=== PATIENT | female | born 1960 | race Caucasian/White ===

== ENCOUNTER 2016-10-09 16:07 | Emergency (ER) | payer OTHER ==
[2016-10-09 16:19] VITALS: BP 135/84; PULSE 89; TEMP 97.9; BMI 32.1
[2016-10-09] MEDS ORDERED: traMADol HCL 50 MG TABLET ONE (17:15)
[2016-10-09] MEDS ORDERED: traMADol HCL 50 MG TABLET PO ONE (17:29)
--- NOTE | 2016-10-09 17:38 | PDOC ---
History of Present Illness - General Chief Complaint: Pain Stated Complaint: NECK PAIN/RT SHOULDER PAIN Time Seen by Provider: 10/09/16 16:46 History Source: Patient - History of Present Illness Timing/Duration: other Associated Symptoms: denies: fever/chills, malaise, weakness Past History - Past Medical History Allergies/Adverse Reactions: Allergies Allergy/AdvReac Type Severity Reaction Status Date / Time No Known Drug Allergies Allergy Verified 10/09/16 16:16 Home Medications: Ambulatory Orders Tramadol HCl 50 mg PO Q6H #30 tablet MDD 200mg 10/09/16 Anemia: No Asthma: No Cancer: Yes (BREAST/HAD LUMPECTOMY) Cardiac Disorders: No CVA: No COPD: No CHF: No Dementia: No Diabetes: No GI Disorders: No Disorders: No HTN: No Hypercholesterolemia: No Liver Disease: No Psychiatric Problems: Yes (depression) Seizures: No Thyroid Disease: No - Surgical History Abdominal Surgery: No Appendectomy: No Cardiac Surgery: No Cholecystectomy: No Lung Surgery: No Neurologic Surgery: No Orthopedic Surgery: No - Psycho/Social/Smoking Cessation Hx Anxiety: No Suicidal Ideation: No Smoking History: Never smoked Have you smoked in the past 12 months: No Information on smoking cessation initiated: No Hx Alcohol Use: No Drug/Substance Use Hx: No Substance Use Type: None Hx Substance Use Treatment: No Review of Systems - Review of Systems Constitutional: No: Chills, Fever Respiratory: No: Shortness of Breath Cardiac (ROS): No: Chest Pain, Palpitations Neurological: No: Numbness, Tingling, Weakness *Physical Exam - Vital Signs Last Vital Signs Temp Pulse Resp BP Pulse Ox 97.9 F 89 18 135/84 100 10/09/16 16:16 10/09/16 16:16 10/09/16 16:16 10/09/16 16:16 10/09/16 16:16 - Physical Exam General Appearance: Yes: Appropriately Dressed. No: Apparent Distress HEENT: positive: Normal Voice Neck: positive: Supple, Other (Lymphadenopathy to R supraclavicular fossa) Respiratory/Chest: positive: Lungs Clear, Normal Breath Sounds. negative: Respiratory Distress Cardiovascular: positive: Regular Rate, S1, S2 Extremity: positive: Normal Range of Motion, Tender (diffusely). negative: Swelling, Erythema Integumentary: positive: Dry, Warm Neurologic: positive: Fully Oriented, Alert, Normal Mood/Affect Medical Decision Making - Medical Decision Making 10/09/16 17:34 54-year-old female history of R breast cancer status post surgery in 2013 with recurrence in 2014, status post surgery and removal of R axillary lymph nodes at that time, developed right supraclavicular lymphadenopathy 6 months ago and told + recurrence of cancer but currently refusing chemotherapy as per patient, lymphedema to RUE w/ chronic right arm pain, here for pain control. C/o her usual RUE pain and taking alleve w/ no relief. No CP/SOB, palpitations, n/v/f/c or malaise. Patient well-appearing and in no apparent distress, with diffuse tenderness to palpation to right arm w/ no significant swelling. DC with pain control. Has upcoming appointment with oncology and will follow-up *DC/Admit/Observation/Transfer Diagnosis at time of Disposition: Chronic arm pain Qualifiers: Laterality: right Qualified Code(s): G89.29 - Other chronic pain; M79.601 - Pain in right arm - Discharge Dispostion Disposition: HOME Condition at time of disposition: Good - Prescriptions Prescriptions: Tramadol HCl 50 mg PO Q6H #30 tablet MDD 200mg - Patient Instructions Printed Discharge Instructions: DI for Lymphedema Additional Instructions: Take medication as directed and follow up with your surgeon and oncologist
--- NOTE | 2016-10-09 17:55 | PDOC ---
*Physical Exam - Vital Signs Last Vital Signs Temp Pulse Resp BP Pulse Ox 97.9 F 89 18 135/84 100 10/09/16 16:16 10/09/16 16:16 10/09/16 16:16 10/09/16 16:16 10/09/16 16:16 ED Treatment Course - Medications Given in the ED: ED Medications Discontinued Medications Generic Name Dose Route Start Last Admin Trade Name Tram PRN Reason Stop Dose Admin Tramadol HCl 50 mg 10/09/16 17:29 10/09/16 17:31 Ultram - PO 10/09/16 17:30 50 mg ONCE ONE Administration *DC/Admit/Observation/Transfer Diagnosis at time of Disposition: Chronic arm pain Qualifiers: Laterality: right Qualified Code(s): G89.29 - Other chronic pain - Discharge Dispostion Disposition: HOME Condition at time of disposition: Good - Prescriptions Prescriptions: Tramadol HCl 50 mg PO Q6H #30 tablet MDD 200mg - Referrals Referrals: Rolan Yao MD [Primary Care Provider] - - Patient Instructions Printed Discharge Instructions: DI for Lymphedema Additional Instructions: Take medication as directed and follow up with your surgeon and oncologist - Post Discharge Activity
== END 2016-10-09 17:35 | disposition home or self-care (01) ==
LOC: JERFT 16:07
DX: M79.604 Pain in right leg (principal); G89.29 Other chronic pain; Z85.3 Personal history of malignant neoplasm of breast
CPT/HCPCS: 99281-25

== ENCOUNTER 2017-04-23 07:29 | Day surgery (SDC) | payer OTHER ==
[2017-04-23] MEDS ORDERED: FULVESTRANT 250 MG/5 ML SYRINGE IM ONE (08:00)
[2017-04-23] MEDS ORDERED: ZOLEDRONIC ACID 4 MG in SODIUM CHLORIDE 100 ML IVPB ONE (08:30)
[2017-04-23 11:33] LABS: EOSINOPHIL 0.6 % (0-4.5); MCH 29.2 pg (25.7-33.7); MCHC 32.8 g/dl (32.0-36.0); MEAN CELL VOLUME 89.2 fl (80-96); MEAN PLT VOLUME 7.2 fl (7.5-11.1); PLATELET COUNT 397 K/MM3 (134-434); RDW 12.3 % (11.6-15.6); WHITE BLOOD COUNT 6.2 K/mm3 (4.0-10.0)
[2017-04-23 12:07] LABS: ALBUMIN 3.4 g/dl (3.4-5.0); ALK PHOS 139 U/L (45-117); ANION GAP 9 (8-16); BILIRUBIN,DIRECT 0.2 mg/dL (0.0-0.2); BILIRUBIN,TOTAL 0.4 mg/dL (0.2-1.0); CALCIUM 9.2 mg/dL (8.5-10.1); CO2 27 mmol/L (21-32); CREATININE 0.6 mg/dL (0.55-1.02); GLUCOSE,RANDOM 96 mg/dL (74-106); MAGNESIUM 2.5 mg/dL (1.8-2.4); SGOT/AST 73 U/L (15-37); SGPT/ALT 40 U/L (12-78); TOT PROT 6.8 g/dl (6.4-8.2)
[2017-04-23 13:20] VITALS: TEMP 98.5
[2017-04-23 16:41] VITALS: BP 132/75; PULSE 90
== END 2017-04-23 14:25 | disposition home or self-care (01) ==
LOC: JONCCHEMO 07:29 → J7W 12:33 → JONCCHEMO 14:25
PROVIDERS: ATTEND Internal Medicine Hematology & Oncology
PROC: 3E01305 Introduction of Other Antineoplastic into Subcutaneous Tissue, Percutaneous Approach (ICD-10-PCS; principal; 2017-04-23)
PROC: 3E033GC Introduction of Other Therapeutic Substance into Peripheral Vein, Percutaneous Approach (ICD-10-PCS; 2017-04-23)
DX: Z51.11 Encounter for antineoplastic chemotherapy (principal); C50.919 Malignant neoplasm of unspecified site of unspecified female breast
CPT/HCPCS: 36415; 80053; 80076; 83735; 85025; 96402; 96417; J3489; J9395

== ENCOUNTER 2017-05-07 07:19 | Day surgery (SDC) | payer OTHER ==
[2017-05-07] MEDS ORDERED: FULVESTRANT 250 MG/5 ML SYRINGE IM ONE (10:00)
[2017-05-07 11:06] VITALS: PULSE 88
[2017-05-07 11:28] LABS: BASOPHIL 1.3 % (0-2.0); EOSINOPHIL 1.2 % (0-4.5); MCH 29.3 pg (25.7-33.7); MCHC 33.4 g/dl (32.0-36.0); MEAN CELL VOLUME 87.6 fl (80-96); NEUTROPHILS 67.7 % (42.8-82.8); PLATELET COUNT 445 K/MM3 (134-434); RDW 12.4 % (11.6-15.6); WHITE BLOOD COUNT 15.3 K/mm3 (4.0-10.0)
[2017-05-07 11:48] LABS: ALBUMIN 3.4 g/dl (3.4-5.0); ANION GAP 14 (8-16); CALCIUM 8.5 mg/dL (8.5-10.1); CO2 23 mmol/L (21-32); GLUCOSE,RANDOM 94 mg/dL (74-106); MAGNESIUM 2.5 mg/dL (1.8-2.4)
[2017-05-07 11:53] LABS: ALK PHOS 189 U/L (45-117); BILIRUBIN,TOTAL 0.5 mg/dL (0.2-1.0); CREATININE 0.5 mg/dL (0.55-1.02); SGOT/AST 73 U/L (15-37); SGPT/ALT 103 U/L (12-78); TOT PROT 6.7 g/dl (6.4-8.2)
[2017-05-07 11:54] LABS: BILIRUBIN,DIRECT 0.1 mg/dL (0.0-0.2)
[2017-05-07 14:13] VITALS: BP 137/74; TEMP 98.1
== END 2017-05-07 12:51 | disposition home or self-care (01) ==
LOC: JONCCHEMO 07:19 → J7W 13:26
PROVIDERS: ATTEND Internal Medicine Hematology & Oncology
DX: Z51.11 Encounter for antineoplastic chemotherapy (principal); C50.919 Malignant neoplasm of unspecified site of unspecified female breast
CPT/HCPCS: 36415; 80053; 80076; 83735; 85025; 96402; J9395